=== PATIENT | female | born 1960 | race Caucasian/White ===

== ENCOUNTER → 2016-03-08 | Outpatient (CLI) | payer OTHER ==
[~2016-03-08] VITALS: Ht 160 cm; Wt 77.3 kg
[2016-03-08] VITALS (9 sets, daily range): BP systolic 113–160; BP diastolic 60–91; PULSE 80–102
[~2016-03-08] MED LIST: CLARITIN 1010 MG/TAB; CLARITIN 1010 MG/TAB PO; COZAAR100 MG PO; HCTZ 25MG TAB25 MG PO; NORVASC 5MG5 MG/TAB PO
[2016-03-08 09:31] LABS: PROTHROMBIN TIME 11.3 SECONDS (9.7-12.8)
== END ==
LOC: COL.RAD 09:00
PROVIDERS: Physician Assistant
DX: K75.81 Nonalcoholic steatohepatitis (NASH) (principal); R74.8 Abnormal levels of other serum enzymes; D69.6 Thrombocytopenia, unspecified; R23.8 Other skin changes; R79.9 Abnormal finding of blood chemistry, unspecified; R16.0 Hepatomegaly, not elsewhere classified
CPT/HCPCS: 25757